=== PATIENT | male | born 1965 | race African-American/Black ===

== ENCOUNTER 2016-03-14 10:24 | Emergency (ER) | payer OTHER ==
[2016-03-14 11:38] LABS: BASO # 0.1 K/mm3 (0.0-0.2); BASO % 1.1 % (0.0-1.0); EOS # 0.4 K/mm3 (0.0-0.50); EOS % 5.7 % (0.0-3.0); LARGE UNSTAINED CELL # 0.2 K/mm3 (0.0-0.4); LARGE UNSTAINED CELL % 2.2 % (0.0-4.0); LYMPH # 2.7 K/mm3 (1.5-4.5); LYMPH % 34.9 % (24.0-44.0); MEAN CORPUSCULAR HEMOGLOBIN 30.4 pg (27.0-33.0); MEAN CORPUSCULAR HGB CONC 33.2 g/dl (32.0-36.5); MEAN CORPUSCULAR VOLUME 91.4 fl (80.0-96.0); MONO # 0.5 K/mm3 (0.0-0.8); MONO % 7.2 % (0.0-5.0); NEUTROPHILS # 3.5 K/mm3 (1.8-7.7); NEUTROPHILS % 48.8 % (36.0-66.0); PLATELET COUNT, AUTOMATED 152 k/mm3 (150-450); RED CELL DISTRIBUTION WIDTH 12.8 % (11.5-14.5); WHITE BLOOD COUNT 7.2 K/mm3 (4.0-10.0)
[2016-03-14 12:16] LABS: ALBUMIN 3.3 GM/DL (3.2-5.2); ALKALINE PHOSPHATASE 59 U/L (45-117); ALT/SGPT 44 U/L (12-78); ANION GAP 5 MEQ/L (8-16); AST/SGOT 17 U/L (15-37); BILIRUBIN,DIRECT 0.1 MG/DL (0.0-0.2); BILIRUBIN,TOTAL 0.4 MG/DL (0.2-1.0); BLOOD UREA NITROGEN 19 MG/DL (7-18); CALCIUM LEVEL 8.3 MG/DL (8.5-10.1); CARBON DIOXIDE LEVEL 34 MEQ/L (21-32); CHLORIDE LEVEL 106 MEQ/L (98-107); CREATININE FOR GFR 0.78 MG/DL (0.70-1.30); GLOMERULAR FILTRATION RATE > 60.0 (>56); GLUCOSE, FASTING 91 MG/DL (70-105); SODIUM LEVEL 145 MEQ/L (136-145); TOTAL PROTEIN 6.3 GM/DL (6.4-8.2)
[2016-03-14] MEDS ORDERED: KETOROLAC 30 MG/ML VIAL (J1885) As Ordered ONE (13:18)
--- NOTE | 2016-03-14 14:01 | EDDOCDS ---
Nurse's Notes [facility] Name: Rica Pantoja Age: 50 yrs Sex: Male : 1965 Arrival Date: 03/14/2016 Time: 10:24 Bed I10 / 23 Private MD: Diagnosis: Diabetes mellitus due to underlying condition with diabetic neuropathy, unspecified Presentation: 03/14 10:35 Presenting complaint: Patient states: c/o increased pain in right eye - had cataract bcj removal in September same eye. c/o blurred vision in eye. no bleeding in eye. Mechanism of Injury: No Mechanism of Injury. The patient denies any loss of vision. Adult Sepsis Screening: The patient does not have new or worsening altered mentation. Patient's respiratory rate is less than 22. Systolic blood pressure is greater than 100. Patient has a qSOFA score of 0- Negative Sepsis Screen. Suicide/Homicide risk assessment- the patient denies having any suicidal and/or homicidal ideations and does not present with any other emotional, behavioral or mental health complaints. Status: Patient is not a rv service technician or dependent. Transition of care: patient was not received from another setting of care. 10:35 Acuity: DAISY Level 4 bcj 10:35 Method Of Arrival: Walkin/Carried/Asstd bcj Triage Assessment: 10:39 General: Appears in no apparent distress, comfortable. Pain: Denies pain. HIV screening j NA for this visit Offered previously. EENT: No deficits noted. Historical: - Allergies: no known allergies; - Home Meds: 1. timolol maleate 0.25 % Opht solg 1 drop twice a day 2. Flomax 0.4 mg Oral cp24 1 cap once daily 3. Lipitor 10 mg Oral tab 1 tab once daily 4. metformin 500 mg Oral tab 1 tab 2 times per day 5. Naprosyn 500 mg Oral tab as needed - PMHx: Cataracts; Glaucoma; Hypertension; Hypercholesterolemia; BPH; - PSHx: Cataract Surgery- Right; - Social history: Smoking status: Patient states former smoker of tobacco. No barriers to communication noted, The patient speaks fluent Polish, Speaks appropriately for age. - Family history: Not pertinent. - : The pt / caregiver states he / she is not on anticoagulants. Home medication list is obtained from the patient. - Exposure Risk Screening:: None identified. Screenin:03 Screening information is obtained from the patient. Fall risk: No risks identified. dls Assistance ADL's: requires no assistance with activities of daily living. Abuse/DV Screen: The patient / caregiver reports he/she is: not in a situation that causes fear, pain or injury. Nutritional screening: No deficits noted. Advance Directives: Currently, there is no health care proxy. There is no active DNR order. There is no living will. There is no Power of Gang Miner. Advance directive information has not previously been placed in an [facility] medical record. home support is adequate. Assessment: 10:57 General: Appears in no apparent distress, well developed, well nourished, well groomed, dls Behavior is cooperative. Awake, alert, oriented. Skin warm and dry. Moves all extremities. Bilateral breath sounds clear. Respirations unlabored. Abdomen soft, non-tender. No apparent distress. Pt brought into exam room pt speaks no Polish corrections officers with pt. Pt had cataract removal 10/14 was seen by Opthomology 03/09 consult reviewed by 03/11 sclera left eye is not red.. 13:53 General: . dls Vital Signs: 10:28 BP 113 / 77; Pulse 58; Resp 18; Temp 97.8; Pulse Ox 99% ; Weight 89.81 kg; Height 5 ft. elp 10 in. (177.80 cm); 10:28 Body Mass Index 28.41 (89.81 kg, 177.80 cm) elp Vitals: 10:28 Log In Time: March 14, 2016 at 10:26. elp Visual Acuity: 11:01 Left Eye Visual acuity 20/30, ; Right Eye Visual acuity 20/30, ; Both Eyes Visual dls acuity 20/30; Without Lenses; ED Course: 10:27 Patient visited by Sujata Christian PCA. elp 10:27 Patient moved to Waiting elp 10:28 Patient visited by Sujata Christian PCA. elp 10:28 Patient moved to Pre RCE elp 10:36 Triage Initiated bcj 10:40 Patient visited by Jaylon Mantilla RN. bcj 10:40 Patient moved to I10 / bcj 10:49 Watson Rodriguez [facility]. jk8 10:49 Sarah Alejandra MD is Attending Physician. [email or web address] 10:49 Patient visited by Watson Rodriguez PA-C. jk8 11:21 [facility] Payment Agreement was scanned into [employer] and attached to record. jp5 11:59 Patient visited by Yoly Franco RN. dls 12:54 Patient name changed from Kimue\S\\S\Santperez\S\ to Kimue\S\ \S\Santperez. EDMS 13:55 No IV's were initiated during this patient's visit. No procedures done that require dls assistance. 13:56 Accompanied by Law Enforcement, Bed in low position. Call light in reach. dls Administered Medications: 13:00 Drug: ketorolac 60 mg [ketorolac 30 mg/mL (1 mL) injection solution (2 mL)] Route: IM; dls Site: right gluteus; Order Results: Lab Order: CBC with Diff; SPEC'M 03/14/16 11:20 Test: WHITE BLOOD COUNT; Value: 7.2; Range: 4.0-10.0; Units: K/mm3; Status: F Test: RED BLOOD COUNT; Value: 4.12; Range: 4.30-6.10; Abnormal: Below low normal; Units: M/mm3; Status: F Test: HEMOGLOBIN; Value: 12.5; Range: 14.0-18.0; Abnormal: Below low normal; Units: g/dl; Status: F Test: HEMATOCRIT; Value: 37.6; Range: 42.0-52.0; Abnormal: Below low normal; Units: %; Status: F Test: MEAN CORPUSCULAR VOLUME; Value: 91.4; Range: 80.0-96.0; Units: fl; Status: F Test: MEAN CORPUSCULAR HEMOGLOBIN; Value: 30.4; Range: 27.0-33.0; Units: pg; Status: F Test: MEAN CORPUSCULAR HGB CONC; Value: 33.2; Range: 32.0-36.5; Units: g/dl; Status: F Test: RED CELL DISTRIBUTION WIDTH; Value: 12.8; Range: 11.5-14.5; Units: %; Status: F Test: PLATELET COUNT, AUTOMATED; Value: 152; Range: 150-450; Units: k/mm3; Status: F Test: NEUTROPHILS %; Value: 48.8; Range: 36.0-66.0; Units: %; Status: F Test: LYMPH %; Value: 34.9; Range: 24.0-44.0; Units: %; Status: F Test: MONO %; Value: 7.2; Range: 0.0-5.0; Abnormal: Above high normal; Units: %; Status: F Test: EOS %; Value: 5.7; Range: 0.0-3.0; Abnormal: Above high normal; Units: %; Status: F Test: BASO %; Value: 1.1; Range: 0.0-1.0; Abnormal: Above high normal; Units: %; Status: F Test: LARGE UNSTAINED CELL %; Value: 2.2; Range: 0.0-4.0; Units: %; Status: F Test: NEUTROPHILS #; Value: 3.5; Range: 1.8-7.7; Units: K/mm3; Status: F Test: LYMPH #; Value: 2.7; Range: 1.5-4.5; Units: K/mm3; Status: F Test: MONO #; Value: 0.5; Range: 0.0-0.8; Units: K/mm3; Status: F Test: EOS #; Value: 0.4; Range: 0.0-0.50; Units: K/mm3; Status: F Test: BASO #; Value: 0.1; Range: 0.0-0.2; Units: K/mm3; Status: F Test: LARGE UNSTAINED CELL #; Value: 0.2; Range: 0.0-0.4; Units: K/mm3; Status: F Lab Order: [facility]; SPEC'M 03/14/16 11:20 Test: GLUCOSE, FASTING; Value: 91; Range: 70-105; Units: MG/DL; Status: F Test: BLOOD UREA NITROGEN; Value: 19; Range: 7-18; Abnormal: Above high normal; Units: MG/DL; Status: F Test: CREATININE FOR GFR; Value: 0.78; Range: 0.70-1.30; Units: MG/DL; Status: F Test: GLOMERULAR FILTRATION RATE; Value: > 60.0; Range: >56; Status: F Test: SODIUM LEVEL; Value: 145; Range: 136-145; Units: MEQ/L; Status: F Test: POTASSIUM SERUM; Value: 4.0; Range: 3.5-5.1; Units: MEQ/L; Status: F Test: CHLORIDE LEVEL; Value: 106; Range: 98-107; Units: MEQ/L; Status: F Test: CARBON DIOXIDE LEVEL; Value: 34; Range: 21-32; Abnormal: Above high normal; Units: MEQ/L; Status: F Test: ANION GAP; Value: 5; Range: 8-16; Abnormal: Below low normal; Units: MEQ/L; Status: F Test: CALCIUM LEVEL; Value: 8.3; Range: 8.5-10.1; Abnormal: Below low normal; Units: MG/DL; Status: F Test Note: ; Units are mL/min/1.73 m2 Chronic Kidney Disease Staging per NKF: Stage I & II GFR >=60 Normal to Mildly Decreased Stage III GFR 30-59 Moderately Decreased Stage IV GFR 15-29 Severely Decreased Stage V GFR <15 Very Little GFR Left ESRD GFR <15 on SINGER SONGWRITER Lab Order: Liver Profile; SPEC'M 03/14/16 11:20 Test: AST/SGOT; Value: 17; Range: 15-37; Units: U/L; Status: F Test: ALT/SGPT; Value: 44; Range: 12-78; Units: U/L; Status: F Test: ALKALINE PHOSPHATASE; Value: 59; Range: 45-117; Units: U/L; Status: F Test: BILIRUBIN,TOTAL; Value: 0.4; Range: 0.2-1.0; Units: MG/DL; Status: F Test: BILIRUBIN,DIRECT; Value: 0.1; Range: 0.0-0.2; Units: MG/DL; Status: F Test: TOTAL PROTEIN; Value: 6.3; Range: 6.4-8.2; Abnormal: Below low normal; Units: GM/DL; Status: F Test: ALBUMIN; Value: 3.3; Range: 3.2-5.2; Units: GM/DL; Status: F Test: ALBUMIN/GLOBULIN RATIO; Value: 1.10; Range: 1.00-1.93; Status: F Outcome: 13:07 Discharge ordered by Provider. jk8 13:53 The following High Risk Discharge criteria are identified: None. Discharged to [facility]. Condition: stable. Discharge instructions given to patient, Instructed on discharge instructions, follow up and referral plans. medication usage, Demonstrated understanding of instructions, Report called to Laura Duque RN at [facility] Pt was receptive of discharge instructions/ teaching. No special radiology studies were completed. 13:55 Discharge Assessment: Patient awake, alert and oriented x 3. No cognitive and/or dls functional deficits noted. Patient verbalized understanding of disposition instructions. patient administered narcotics - no. The following High Risk Discharge criteria are identified: None. Discharged to home ambulatory, with corrections officers. Admission hand-off: Report called to Laura Duque RN. Property sent home with patient. 14:00 Patient left the ED. [facility] Signatures: Dispatcher [employer] EDJaylon Powers, RN RN Yoly Washington RN RN Sujata Reyes, WIRE STRAIGHTENING MACHINE OPERATOR WIRE STRAIGHTENING MACHINE OPERATOR Oh Baker jp5 Watson Rodriguez, LILLY CARR jk8 EITAN
--- NOTE | 2016-03-14 14:01 | EDDOCDS ---
Physician Documentation [facility] Name: Rica Pantoja Age: 50 yrs Sex: Male : 1965 Arrival Date: 03/14/2016 Time: 10:24 Bed I10 / 23 Private MD: Disposition: 03/14/16 13:07 Discharged to Home/Self Care. Impression: Diabetes mellitus due to underlying condition with diabetic neuropathy, unspecified. - Condition is Stable. - Prescriptions for Naprosyn 500 mg Oral Tablet - take 1 tablet by ORAL route 2 times per day start tomorrow and take with food, no Naproxen today; 30 tablet. - Medication Reconciliation, Local Pharmacy Hours form. - Follow up: Emergency Department; When: As needed; Reason: Worsening of conditions. Follow up: Private Physician; When: 2 - 3 days; Reason: Recheck today's complaints. - Problem is new. - Symptoms have worsened. HPI: 03/14 12:09 The patient is experiencing pain. jk8 Historical: - Allergies: no known allergies; - Home Meds: 1. timolol maleate 0.25 % Opht solg 1 drop twice a day 2. Flomax 0.4 mg Oral cp24 1 cap once daily 3. Lipitor 10 mg Oral tab 1 tab once daily 4. metformin 500 mg Oral tab 1 tab 2 times per day 5. Naprosyn 500 mg Oral tab as needed - PMHx: Cataracts; Glaucoma; Hypertension; Hypercholesterolemia; BPH; - PSHx: Cataract Surgery- Right; - Social history: Smoking status: Patient states former smoker of tobacco. No barriers to communication noted, The patient speaks fluent [place], Speaks appropriately for age. - Family history: Not pertinent. - : The pt / caregiver states he / she is not on anticoagulants. Home medication list is obtained from the patient. - Exposure Risk Screening:: None identified. Vital Signs: 10:28 BP 113 / 77; Pulse 58; Resp 18; Temp 97.8; Pulse Ox 99% ; Weight 89.81 kg / 198 lbs; elp Height 5 ft. 10 in. (177.80 cm); 10:28 Body Mass Index 28.41 (89.81 kg, 177.80 cm) elp Visual Acuity: 11:01 Left Eye Visual acuity 20/30, ; Right Eye Visual acuity 20/30, ; Both Eyes Visual dls acuity 20/30; Without Lenses; MDM: 11:14 CBC with Diff Ordered. EDMS 11:21 BMP Ordered. EDMS 11:21 Liver Profile Ordered. EDMS 11:21 [facility] Payment Agreement was scanned into [employer] and attached to record. jp5 11:21 Financial registration complete. jp5 12:47 CBC with Diff Reviewed. jk8 12:47 BMP Reviewed. jk8 12:47 Liver Profile Reviewed. jk8 13:06 ketorolac 60 mg IM once ordered. jk8 Administered Medications: 13:00 Drug: ketorolac 60 mg [ketorolac 30 mg/mL (1 mL) injection solution (2 mL)] Route: IM; dls Site: right gluteus; Signatures: Dispatcher [employer] EDMS Jaylon Mantilla RN RN bcj Scott, Debra, RN RN dls PriceShwethavee jp5 Watson Rodriguez PA-C PA-C jk8 The chart was reviewed and I authenticate all verbal orders and agree with the evaluation and treatment provided.Corrections: (The following items were deleted from the chart) 12:10 12:09 The patient is experiencing pain, jk8 jk8 Attachments: 11:21 [facility] Payment Agreement jp5 MTDD
--- NOTE | 2016-03-16 15:01 | EDDOCDS ---
Physician Documentation [facility] Name: Rica Pantoja Age: 50 yrs Sex: Male : 1965 Arrival Date: 03/14/2016 Time: 10:24 Bed I10 / 23 Private MD: Disposition: 03/14/16 13:07 Discharged to Home/Self Care. Impression: Diabetes mellitus due to underlying condition with diabetic neuropathy, unspecified. - Condition is Stable. - Prescriptions for Naprosyn 500 mg Oral Tablet - take 1 tablet by ORAL route 2 times per day start tomorrow and take with food, no Naproxen today; 30 tablet. - Medication Reconciliation, Local Pharmacy Hours form. - Follow up: Emergency Department; When: As needed; Reason: Worsening of conditions. Follow up: Private Physician; When: 2 - 3 days; Reason: Recheck today's complaints. - Problem is new. - Symptoms have worsened. HPI: 03/14 12:09 The patient is experiencing pain. jk8 Historical: - Allergies: no known allergies; - Home Meds: 1. timolol maleate 0.25 % Opht solg 1 drop twice a day 2. Flomax 0.4 mg Oral cp24 1 cap once daily 3. Lipitor 10 mg Oral tab 1 tab once daily 4. metformin 500 mg Oral tab 1 tab 2 times per day 5. Naprosyn 500 mg Oral tab as needed - PMHx: Cataracts; Glaucoma; Hypertension; Hypercholesterolemia; BPH; - PSHx: Cataract Surgery- Right; - Social history: Smoking status: Patient states former smoker of tobacco. No barriers to communication noted, The patient speaks fluent Albanian, Speaks appropriately for age. - Family history: Not pertinent. - : The pt / caregiver states he / she is not on anticoagulants. Home medication list is obtained from the patient. - Exposure Risk Screening:: None identified. Vital Signs: 10:28 BP 113 / 77; Pulse 58; Resp 18; Temp 97.8; Pulse Ox 99% ; Weight 89.81 kg / 198 lbs; elp Height 5 ft. 10 in. (177.80 cm); 10:28 Body Mass Index 28.41 (89.81 kg, 177.80 cm) elp Visual Acuity: 11:01 Left Eye Visual acuity 20/30, ; Right Eye Visual acuity 20/30, ; Both Eyes Visual dls acuity 20/30; Without Lenses; MDM: 11:14 CBC with Diff Ordered. EDMS 11:21 BMP Ordered. EDMS 11:21 Liver Profile Ordered. EDMS 11:21 [facility] Payment Agreement was scanned into [employer] and attached to record. jp5 11:21 Financial registration complete. jp5 12:47 CBC with Diff Reviewed. jk8 12:47 BMP Reviewed. jk8 12:47 Liver Profile Reviewed. jk8 13:06 ketorolac 60 mg IM once ordered. jk8 15:25 T-Sheet-- Draft Copy was scanned into [employer] and attached to record. klr Administered Medications: 13:00 Drug: ketorolac 60 mg [ketorolac 30 mg/mL (1 mL) injection solution (2 mL)] Route: IM; dls Site: right gluteus; Signatures: Dispatcher [employer] EDMS Jaylon Mantilla RN RN bcj Scott, Debra, RN RN dls Price, Jennalee jp5 Watson Rodriguez PA-C PA-C jk8 Janice Cesar meena The chart was reviewed and I authenticate all verbal orders and agree with the evaluation and treatment provided.Corrections: (The following items were deleted from the chart) 12:10 12:09 The patient is experiencing pain, jk8 jk8 Attachments: 11:21 [facility] Payment Agreement jp5 15:25 T-Sheet-- Draft Copy klr Chart Complete MTDD
--- NOTE | 2016-03-16 15:01 | EDDOCDS ---
Nurse's Notes [facility] Name: Rica Pantoja Age: 50 yrs Sex: Male : 1965 Arrival Date: 03/14/2016 Time: 10:24 Bed I10 / 23 Private MD: Diagnosis: Diabetes mellitus due to underlying condition with diabetic neuropathy, unspecified Presentation: 03/14 10:35 Presenting complaint: Patient states: c/o increased pain in right eye - had cataract bcj removal in September same eye. c/o blurred vision in eye. no bleeding in eye. Mechanism of Injury: No Mechanism of Injury. The patient denies any loss of vision. Adult Sepsis Screening: The patient does not have new or worsening altered mentation. Patient's respiratory rate is less than 22. Systolic blood pressure is greater than 100. Patient has a qSOFA score of 0- Negative Sepsis Screen. Suicide/Homicide risk assessment- the patient denies having any suicidal and/or homicidal ideations and does not present with any other emotional, behavioral or mental health complaints. Status: Patient is not a financial services sales representative or dependent. Transition of care: patient was not received from another setting of care. 10:35 Acuity: DAISY Level 4 bcj 10:35 Method Of Arrival: Walkin/Carried/Asstd bcj Triage Assessment: 10:39 General: Appears in no apparent distress, comfortable. Pain: Denies pain. HIV screening j NA for this visit Offered previously. EENT: No deficits noted. Historical: - Allergies: no known allergies; - Home Meds: 1. timolol maleate 0.25 % Opht solg 1 drop twice a day 2. Flomax 0.4 mg Oral cp24 1 cap once daily 3. Lipitor 10 mg Oral tab 1 tab once daily 4. metformin 500 mg Oral tab 1 tab 2 times per day 5. Naprosyn 500 mg Oral tab as needed - PMHx: Cataracts; Glaucoma; Hypertension; Hypercholesterolemia; BPH; - PSHx: Cataract Surgery- Right; - Social history: Smoking status: Patient states former smoker of tobacco. No barriers to communication noted, The patient speaks fluent Slovak, Speaks appropriately for age. - Family history: Not pertinent. - : The pt / caregiver states he / she is not on anticoagulants. Home medication list is obtained from the patient. - Exposure Risk Screening:: None identified. Screenin:03 Screening information is obtained from the patient. Fall risk: No risks identified. dls Assistance ADL's: requires no assistance with activities of daily living. Abuse/DV Screen: The patient / caregiver reports he/she is: not in a situation that causes fear, pain or injury. Nutritional screening: No deficits noted. Advance Directives: Currently, there is no health care proxy. There is no active DNR order. There is no living will. There is no Power of Certified Legal Secretary Specialist. Advance directive information has not previously been placed in an [facility] medical record. home support is adequate. Assessment: 10:57 General: Appears in no apparent distress, well developed, well nourished, well groomed, dls Behavior is cooperative. Awake, alert, oriented. Skin warm and dry. Moves all extremities. Bilateral breath sounds clear. Respirations unlabored. Abdomen soft, non-tender. No apparent distress. Pt brought into exam room pt speaks no Slovak corrections officers with pt. Pt had cataract removal 10/14 was seen by Opthomology 03/09 consult reviewed by 03/11 sclera left eye is not red.. 13:53 General: . dls Vital Signs: 10:28 BP 113 / 77; Pulse 58; Resp 18; Temp 97.8; Pulse Ox 99% ; Weight 89.81 kg; Height 5 ft. elp 10 in. (177.80 cm); 10:28 Body Mass Index 28.41 (89.81 kg, 177.80 cm) elp Vitals: 10:28 Log In Time: March 14, 2016 at 10:26. elp Visual Acuity: 11:01 Left Eye Visual acuity 20/30, ; Right Eye Visual acuity 20/30, ; Both Eyes Visual dls acuity 20/30; Without Lenses; ED Course: 10:27 Patient visited by Sujata Christian PCA. elp 10:27 Patient moved to Waiting elp 10:28 Patient visited by Sujata Christian PCA. elp 10:28 Patient moved to Pre RCE elp 10:36 Triage Initiated bcj 10:40 Patient visited by Jaylon Mantilla RN. bcj 10:40 Patient moved to I10 / bcj 10:49 [facility] jk8 10:49 Sarah Alejandra MD is Attending Physician. [email or web address] 10:49 Patient visited by Watson Rodriguez PA-C. jk8 11:21 [facility] Payment Agreement was scanned into [employer] and attached to record. jp5 11:59 Patient visited by Yoly Franco RN. dls 12:54 Patient name changed from Kimue\S\\S\Santperez\S\ to Kimue\S\ \S\Santperez. EDMS 13:55 No IV's were initiated during this patient's visit. No procedures done that require dls assistance. 13:56 Accompanied by Law Enforcement, Bed in low position. Call light in reach. dls 15:25 T-Sheet-- Draft Copy was scanned into [employer] and attached to record. klr Administered Medications: 13:00 Drug: ketorolac 60 mg [ketorolac 30 mg/mL (1 mL) injection solution (2 mL)] Route: IM; dls Site: right gluteus; Order Results: Lab Order: CBC with Diff; SPEC'M 03/14/16 11:20 Test: WHITE BLOOD COUNT; Value: 7.2; Range: 4.0-10.0; Units: K/mm3; Status: F Test: RED BLOOD COUNT; Value: 4.12; Range: 4.30-6.10; Abnormal: Below low normal; Units: M/mm3; Status: F Test: HEMOGLOBIN; Value: 12.5; Range: 14.0-18.0; Abnormal: Below low normal; Units: g/dl; Status: F Test: HEMATOCRIT; Value: 37.6; Range: 42.0-52.0; Abnormal: Below low normal; Units: %; Status: F Test: MEAN CORPUSCULAR VOLUME; Value: 91.4; Range: 80.0-96.0; Units: fl; Status: F Test: MEAN CORPUSCULAR HEMOGLOBIN; Value: 30.4; Range: 27.0-33.0; Units: pg; Status: F Test: MEAN CORPUSCULAR HGB CONC; Value: 33.2; Range: 32.0-36.5; Units: g/dl; Status: F Test: RED CELL DISTRIBUTION WIDTH; Value: 12.8; Range: 11.5-14.5; Units: %; Status: F Test: PLATELET COUNT, AUTOMATED; Value: 152; Range: 150-450; Units: k/mm3; Status: F Test: NEUTROPHILS %; Value: 48.8; Range: 36.0-66.0; Units: %; Status: F Test: LYMPH %; Value: 34.9; Range: 24.0-44.0; Units: %; Status: F Test: MONO %; Value: 7.2; Range: 0.0-5.0; Abnormal: Above high normal; Units: %; Status: F Test: EOS %; Value: 5.7; Range: 0.0-3.0; Abnormal: Above high normal; Units: %; Status: F Test: BASO %; Value: 1.1; Range: 0.0-1.0; Abnormal: Above high normal; Units: %; Status: F Test: LARGE UNSTAINED CELL %; Value: 2.2; Range: 0.0-4.0; Units: %; Status: F Test: NEUTROPHILS #; Value: 3.5; Range: 1.8-7.7; Units: K/mm3; Status: F Test: LYMPH #; Value: 2.7; Range: 1.5-4.5; Units: K/mm3; Status: F Test: MONO #; Value: 0.5; Range: 0.0-0.8; Units: K/mm3; Status: F Test: EOS #; Value: 0.4; Range: 0.0-0.50; Units: K/mm3; Status: F Test: BASO #; Value: 0.1; Range: 0.0-0.2; Units: K/mm3; Status: F Test: LARGE UNSTAINED CELL #; Value: 0.2; Range: 0.0-0.4; Units: K/mm3; Status: F Lab Order: [facility]; SPEC'M 03/14/16 11:20 Test: GLUCOSE, FASTING; Value: 91; Range: 70-105; Units: MG/DL; Status: F Test: BLOOD UREA NITROGEN; Value: 19; Range: 7-18; Abnormal: Above high normal; Units: MG/DL; Status: F Test: CREATININE FOR GFR; Value: 0.78; Range: 0.70-1.30; Units: MG/DL; Status: F Test: GLOMERULAR FILTRATION RATE; Value: > 60.0; Range: >56; Status: F Test: SODIUM LEVEL; Value: 145; Range: 136-145; Units: MEQ/L; Status: F Test: POTASSIUM SERUM; Value: 4.0; Range: 3.5-5.1; Units: MEQ/L; Status: F Test: CHLORIDE LEVEL; Value: 106; Range: 98-107; Units: MEQ/L; Status: F Test: CARBON DIOXIDE LEVEL; Value: 34; Range: 21-32; Abnormal: Above high normal; Units: MEQ/L; Status: F Test: ANION GAP; Value: 5; Range: 8-16; Abnormal: Below low normal; Units: MEQ/L; Status: F Test: CALCIUM LEVEL; Value: 8.3; Range: 8.5-10.1; Abnormal: Below low normal; Units: MG/DL; Status: F Test Note: ; Units are mL/min/1.73 m2 Chronic Kidney Disease Staging per NKF: Stage I & II GFR >=60 Normal to Mildly Decreased Stage III GFR 30-59 Moderately Decreased Stage IV GFR 15-29 Severely Decreased Stage V GFR <15 Very Little GFR Left ESRD GFR <15 on MANAGER STERILE Lab Order: Liver Profile; SPEC'M 03/14/16 11:20 Test: AST/SGOT; Value: 17; Range: 15-37; Units: U/L; Status: F Test: ALT/SGPT; Value: 44; Range: 12-78; Units: U/L; Status: F Test: ALKALINE PHOSPHATASE; Value: 59; Range: 45-117; Units: U/L; Status: F Test: BILIRUBIN,TOTAL; Value: 0.4; Range: 0.2-1.0; Units: MG/DL; Status: F Test: BILIRUBIN,DIRECT; Value: 0.1; Range: 0.0-0.2; Units: MG/DL; Status: F Test: TOTAL PROTEIN; Value: 6.3; Range: 6.4-8.2; Abnormal: Below low normal; Units: GM/DL; Status: F Test: ALBUMIN; Value: 3.3; Range: 3.2-5.2; Units: GM/DL; Status: F Test: ALBUMIN/GLOBULIN RATIO; Value: 1.10; Range: 1.00-1.93; Status: F Outcome: 13:07 Discharge ordered by Provider. jk8 13:53 The following High Risk Discharge criteria are identified: None. Discharged to [facility]. Condition: stable. Discharge instructions given to patient, Instructed on discharge instructions, follow up and referral plans. medication usage, Demonstrated understanding of instructions, Report called to Laura Duque RN at [facility] Pt was receptive of discharge instructions/ teaching. No special radiology studies were completed. 13:55 Discharge Assessment: Patient awake, alert and oriented x 3. No cognitive and/or dls functional deficits noted. Patient verbalized understanding of disposition instructions. patient administered narcotics - no. The following High Risk Discharge criteria are identified: None. Discharged to home ambulatory, with corrections officers. Admission hand-off: Report called to Laura Duque RN. Property sent home with patient. 14:00 [facility] ED. [facility] Signatures: Dispatcher [employer] EDMS Jaylon Mantilla RN Yoly Cardenas RN RN Sujata Reyes, REGISTERED CLINICAL DIETITIAN REGISTERED CLINICAL DIETITIAN Oh Baker jp5 Watson Rodriguez, LILLY PADom jkJanice Eagle Chart Complete EITAN
--- NOTE | 2016-03-16 15:01 | EDDOCDS ---
Physician Documentation [facility] Name: Rica Pantoja Age: 50 yrs Sex: Male : 1965 Arrival Date: 03/14/2016 Time: 10:24 Bed I10 / 23 Private MD: Disposition: 03/14/16 13:07 Discharged to Home/Self Care. Impression: Diabetes mellitus due to underlying condition with diabetic neuropathy, unspecified. - Condition is Stable. - Prescriptions for Naprosyn 500 mg Oral Tablet - take 1 tablet by ORAL route 2 times per day start tomorrow and take with food, no Naproxen today; 30 tablet. - Medication Reconciliation, Local Pharmacy Hours form. - Follow up: Emergency Department; When: As needed; Reason: Worsening of conditions. Follow up: Private Physician; When: 2 - 3 days; Reason: Recheck today's complaints. - Problem is new. - Symptoms have worsened. HPI: 03/14 12:09 The patient is experiencing pain. jk8 Historical: - Allergies: no known allergies; - Home Meds: 1. timolol maleate 0.25 % Opht solg 1 drop twice a day 2. Flomax 0.4 mg Oral cp24 1 cap once daily 3. Lipitor 10 mg Oral tab 1 tab once daily 4. metformin 500 mg Oral tab 1 tab 2 times per day 5. Naprosyn 500 mg Oral tab as needed - PMHx: Cataracts; Glaucoma; Hypertension; Hypercholesterolemia; BPH; - PSHx: Cataract Surgery- Right; - Social history: Smoking status: Patient states former smoker of tobacco. No barriers to communication noted, The patient speaks fluent Portuguese, Speaks appropriately for age. - Family history: Not pertinent. - : The pt / caregiver states he / she is not on anticoagulants. Home medication list is obtained from the patient. - Exposure Risk Screening:: None identified. Vital Signs: 10:28 BP 113 / 77; Pulse 58; Resp 18; Temp 97.8; Pulse Ox 99% ; Weight 89.81 kg / 198 lbs; elp Height 5 ft. 10 in. (177.80 cm); 10:28 Body Mass Index 28.41 (89.81 kg, 177.80 cm) elp Visual Acuity: 11:01 Left Eye Visual acuity 20/30, ; Right Eye Visual acuity 20/30, ; Both Eyes Visual dls acuity 20/30; Without Lenses; MDM: 11:14 CBC with Diff Ordered. EDMS 11:21 BMP Ordered. EDMS 11:21 Liver Profile Ordered. EDMS 11:21 [facility] Payment Agreement was scanned into [employer] and attached to record. jp5 11:21 Financial registration complete. jp5 12:47 CBC with Diff Reviewed. jk8 12:47 BMP Reviewed. jk8 12:47 Liver Profile Reviewed. jk8 13:06 ketorolac 60 mg IM once ordered. jk8 15:25 T-Sheet-- Draft Copy was scanned into [employer] and attached to record. klr Administered Medications: 13:00 Drug: ketorolac 60 mg [ketorolac 30 mg/mL (1 mL) injection solution (2 mL)] Route: IM; dls Site: right gluteus; Signatures: Dispatcher [employer] EDMS Jaylon Mantilla RN RN bcj Scott, Debra, RN RN dls Price, Jennalee jp5 Watson Rodriugez PA-C PA-C jk8 Janice Cesar meena The chart was reviewed and I authenticate all verbal orders and agree with the evaluation and treatment provided.Corrections: (The following items were deleted from the chart) 12:10 12:09 The patient is experiencing pain, jk8 jk8 Attachments: 11:21 [facility] Payment Agreement jp5 15:25 T-Sheet-- Draft Copy klr Chart Complete MTDD
== END 2016-03-14 14:00 | disposition home or self-care (01) ==
LOC: M ED 10:24
DX: H57.11 Ocular pain, right eye (principal); H26.9 Unspecified cataract; H40.9 Unspecified glaucoma; I10 Essential (primary) hypertension; E78.00 Pure hypercholesterolemia, unspecified; N40.0 Benign prostatic hyperplasia without lower urinary tract symptoms; Z87.891 Personal history of nicotine dependence; Z79.899 Other long term (current) drug therapy
CPT/HCPCS: 36415; 80048; 80076; 85025; 96372; 99283; J1885